=== PATIENT | male | born 1985 | race African-American/Black ===

== ENCOUNTER 2018-02-12 10:08 | Emergency (ER) | payer MEDICAID ==
[~2018-02-12] VITALS: Ht 175.3 cm; Wt 78.0 kg
[2018-02-12] MEDS ORDERED: KETOROLAC 30MG/ML VIAL IV ONE (11:45)
[2018-02-12] MEDS ORDERED: SODIUM CHLORIDE 0.9% 1,000 ML IV ONE (11:45)
[2018-02-12] MEDS ORDERED: ONDANSETRON HCL 4MG/2ML VIAL IV STA (11:45)
[2018-02-12] MEDS ORDERED: DEXAMETHASONE 10 MG/ML VIAL IV ONE (11:45)
[2018-02-12 13:27] VITALS: BP 105/57
== END 2018-02-12 13:30 | disposition home or self-care (01) ==
LOC: ER 10:47
DX: J01.90 Acute sinusitis, unspecified (principal); R51 Headache
CPT/HCPCS: 71045; 96361; 96374; 96375; 99284; J1100; J1885; J2405; J7030; Z7610